=== PATIENT | male | born 1950 | race Caucasian/White ===

== ENCOUNTER 2021-03-23 12:08 | Inpatient (IN) | payer BC ==
[2021-03-23] MEDS ORDERED: Albuterol/Ipratropium 3.0-0.5 MG/3 ML Neb Soln NEB PRN (12:43)
[2021-03-23 13:15] LABS: PCO2 ARTERIAL,POC 31 mmHg (35-48)
[2021-03-23 13:30] LABS: PTT,PARTIAL THROMBOPLSTIN TIME 30.3 SEC (25.6-32.8)
[2021-03-23 13:34] LABS: ANION GAP 17.1 mmol/L (5-15); CHLORIDE,CL 96 mmol/L (98-107); SODIUM,NA 134 mmol/L (136-145)
--- NOTE | 2021-03-23 13:39 | CR ---
[id number] RAD/RAD Chest PA And Lateral EXAM: RAD Chest PA And Lateral INDICATION: SHORTNESS OF BREATH. COMPARISON: None. DISCUSSION: Cardiomediastinal silhouette is stable in size and contour. Patchy pulmonary infiltrates overlying the lungs bilaterally. No pneumothorax or pleural effusion. IMPRESSION: Patchy pulmonary infiltrates overlying the lungs bilaterally. Findings are likely infectious/inflammatory in nature as can be seen with atypical/viral pneumonia. Perfecto Kearney DO 03/23/21 [id number] Thank you for allowing us to participate in the care of your patient.
[2021-03-23] MEDS: dexAMETHasone 2 MG, dexAMETHasone 4 MG PO SCH ×2 (13:45)
[2021-03-23] MEDS ORDERED: REMDESIVIR 200 MG in Sodium Chloride 0.9% 250 ML IV ONE (14:00)
--- NOTE | 2021-03-23 14:00 | HP ---
Admission history and physical to the acute care floor at [facility]. CHIEF COMPLAINT: Shortness of breath. HISTORY OF PRESENT ILLNESS: A 70-year-old male patient presented to the clinic at [facility] complaining of shortness of breath. The patient states his symptoms started on 03/14/2021. He was diagnosed with COVID-19 on 03/18/2021. He states his symptoms have progressively gotten worse. Upon arrival to the clinic, the patient's oxygen saturations were in the low 80s. The patient has complained of dry cough, body aches, headaches, some dizziness, shortness of breath with activity. No chest pain or palpitations. No lightheadedness. The patient has had on and off fevers at home. Intermittent chills. The patient is trying to stay well hydrated with good p.o. fluid intake. The patient has not been taking anything over the counter. The patient denies any abdominal pain. No nausea, vomiting, or diarrhea. The patient quit smoking in 11/2013. No history of any COPD. PAST MEDICAL HISTORY: 1. Hyperlipidemia due to type 2 diabetes. 2. Hypertension associated with diabetes. 3. Erectile dysfunction associated with type 2 diabetes. 4. Type 2 diabetes, not on long-term insulin, without complication. 5. Obesity. 6. Tubular adenoma of the colon. 7. BPH without lower urinary tract symptoms. PAST SURGICAL HISTORY: 1. Hemiarthroplasty of the right glenohumeral joint in 1972. 2. Colonoscopy in 2014. FAMILY HISTORY: Noncontributory. SOCIAL HISTORY: The patient quit smoking in 11/2013. The patient is . The patient does not drink alcohol. No vaping. The patient is retired. ALLERGIES: 1. Barley grass. 2. Fish. 3. Ragweed. 4. Penicillin G. 5. Jardiance. 6. Statins. MEDICATIONS: 1. Glipizide 10 mg 1 tablet p.o. daily. 2. Hydrochlorothiazide 25 mg p.o. daily. 3. Metformin 1000 mg p.o. twice daily. 4. Actos 30 mg p.o. daily. 5. Quinapril 10 mg p.o. daily. 6. Ozempic 0.5 mg subcutaneous every 7 days. 7. Sitagliptin 100 mg 1 tablet p.o. daily. CODE STATUS: Full code. REVIEW OF SYSTEMS: See HPI. PHYSICAL EXAMINATION: Vital Signs: Temperature 98.0, pulse 74, blood pressure 135/68, respiratory rate 16, oxygen saturation 93% on 1.5 L. 6 feet tall. Skin: Intact. Warm and dry. Respiratory: Lungs are decreased throughout, otherwise clear. Cardiovascular: Regular rate and rhythm. No murmur. Abdomen: Soft, nontender. Bowel sounds are hypoactive x4. Extremities: No edema. Neurological: The patient is alert. The patient is oriented to person, place, and time. LABORATORY STUDIES: Results pending at the time of this dictation. ASSESSMENT: 1. Acute respiratory failure with hypoxia secondary to coronavirus disease 2019. 2. Acute coronavirus disease 2019. 3. Supplemental oxygen. 4. Type 2 diabetes without complication, without long-term use of insulin. 5. Hyperlipidemia due to type 2 diabetes. 6. Hypertension associated with type 2 diabetes. PLAN: A 70-year-old male patient who was seen at the [facility] earlier today. He was admitted to the acute care floor at [facility] for acute respiratory failure with hypoxia secondary to COVID-19. The patient will be started on remdesivir and Decadron as he is requiring oxygen. No IV fluids. Started on Lovenox. Check laboratory work today. Also, check a chest x-ray and EKG. We will recheck laboratory work tomorrow morning. The patient will be started on DuoNeb scheduled every 4 hours and every 2 hours as needed. Anticipate the patient to be admitted for the next 3 to 4 days as long as he progresses well. This patient was seen and examined by me as an [facility] provider. Total time for care and coordination, greater than 30 minutes. TB: 03/23/2021 13:04:11 MODL: 03/23/2021 13:51:51 /[id number]
[2021-03-23] MEDS ORDERED: Dexamethasone 2 MG Tab ONE (15:07)
[2021-03-23] MEDS: Albuterol/Ipratropium 3.0-0.5 MG/3 ML Neb Soln NEB SCH ×3 (15:47→20:43)
[2021-03-23] MEDS: metFORMIN 500 MG Tab PO SCH (18:31)
[2021-03-23] MEDS: Enoxaparin 40 MG/0.4 ML Syringe SUBCUT SCH ×2 (20:43→20:48)
[2021-03-24] MEDS: Albuterol/Ipratropium 3.0-0.5 MG/3 ML Neb Soln NEB SCH ×3 (00:30→07:25)
[2021-03-24 07:23] LABS: ANION GAP 21.2 mmol/L (5-15)
[2021-03-24] MEDS ORDERED: 50% Dextrose in Water 50 ML Syringe IVPUSH PRN (07:32)
[2021-03-24] MEDS ORDERED: Glucagon,Human Recombinant 1 MG Vial IM PRN (07:32)
[2021-03-24] MEDS ORDERED: Pioglitazone 15 MG Tab PO SCH (08:00)
[2021-03-24] MEDS: dexAMETHasone 2 MG, dexAMETHasone 4 MG PO SCH ×2 (08:59)
[2021-03-24] MEDS: Lisinopril 5 MG Tab PO SCH (08:59)
[2021-03-24] MEDS: metFORMIN 500 MG Tab PO SCH (08:59)
[2021-03-24] MEDS: Hydrochlorothiazide 25 MG Tab PO SCH (08:59)
[2021-03-24] MEDS: Insulin Regular, Human 100 Units/ML 3 ML Vial SUBCUT ONE ×2 (09:15→11:42)
[2021-03-24] MEDS: Insulin Regular, Human 100 Units/ML 3 ML Vial SUBCUT SCH ×2 (09:30→14:28)
--- NOTE | 2021-03-24 09:54 | PN ---
Progress Note for CORY BENAVIDEZ Date: 03/24/2021 Room #: [id number] CHIEF COMPLAINT: Shortness of breath. SUBJECTIVE: Hospital day #2 on a 70-year-old male patient who was admitted from the [facility] yesterday for acute respiratory failure with hypoxia secondary to COVID-19. The patient states he is feeling better today. He does not have a cough. He feels less short of breath. He is still on oxygen at 3 L. The patient states his strength is getting better. He is able to walk around the room without assistance. He has not had any chest pain or palpitations. He does have intermittent shortness of breath with activity. No fevers or chills. No skin concerns. No abdominal complaints. The patient denies any nausea, vomiting, or diarrhea. REVIEW OF SYSTEMS: See HPI. PHYSICAL EXAMINATION: Vital Signs: Temperature 97.2, pulse 83, blood pressure 153/80, respiratory rate 20, oxygen saturation 90% on 3 L. Skin: Intact, warm and dry. Respiratory: Lungs are decreased, but clear throughout. Cardiovascular: Regular rate and rhythm, no murmur. Abdomen: Soft, nontender. Bowel sounds are hypoactive x4. Extremities: No edema. Neurological: The patient is alert. Patient is oriented to person, place, and time. LABORATORY STUDIES: 1. CBC: White blood cell count 1.5, hemoglobin 10.4, hematocrit 33.4, platelets 159,000. 2. CMP: Sodium 138, potassium 4.2, chloride 100, CO2 of 21, anion gap 21.2, BUN 22, creatinine 1.5, GFR 47, glucose 440, calcium 8.5, AST 25, ALT 22, alkaline phosphatase 74, total protein 6.3. ASSESSMENT: 1. Acute respiratory failure with hypoxia secondary to COVID-19. 2. Acute COVID-19. 3. Supplemental oxygen. 4. Type 2 diabetes without complication, without long-term use of insulin. 5. Hyperlipidemia due to type 2 diabetes. 6. Hypertension associated with type 2 diabetes. PLAN: Hospital day #2 on a 70-year-old male patient who was admitted from the [facility] yesterday for the above diagnoses. The patient will continue on acute cares. Continue with oxygen to keep his saturations greater than 90%. We will discuss Lovenox dosing with pharmacy as the patient has a history of GI bleed from a couple of months ago. Continue on remdesivir and Decadron. We will start the patient on high-dose sliding scale insulin for sugar correction. Recheck laboratory work tomorrow. We discussed getting out of bed and walking. I anticipate the patient to be admitted for the next 2 to 3 days. This patient was seen and examined by me as an [facility] provider. Total time for care and coordination, greater than 30 minutes. TB: 03/24/2021 08:04:32 MODL: 03/24/2021 09:43:45 /[id number]
[2021-03-24] MEDS: Azithromycin 250 MG Tab PO SCH (10:05)
[2021-03-24] MEDS: cefTRIAXone 2 GM Vial IVPUSH SCH (10:06)
[2021-03-24] MEDS ORDERED: REMDESIVIR 100 MG in Sodium Chloride 0.9% 100 ML IV SCH (14:00)
[2021-03-24] MEDS: REMDESIVIR 100 MG in Sodium Chloride 0.9% 100 ML IV SCH (14:49)
--- NOTE | 2021-03-24 17:11 | PCM.EKG ---
#1 Interpretation EKG Date: 03/23/21 Rhythm: NSR Rate (Beats/Min): 91 [place]: Normal P-Wave: Present QRS: RBBB ST-T: Normal QT: Normal IN/PQ Interval: 0.15 Comparison: NA - No Prior EKG EKG Interpretation Comments: NSR with RBBB
--- NOTE | 2021-03-24 17:15 | PCM.SN.2 ---
- Free Text/Narrative Note: Blood sugars discussed with pharmacist and RN. Will start insulin drip and hold PO DM meds. Insulin drip per protocol. Check BS every hour. Left leg feels numb. Likely due to decrease in ambulation and patient staying in bed too long. Recommend ambulating in room. Will see if patient can come out of isolation tomorrow. Patient and RN aware of plan.
[2021-03-24] MEDS: Enoxaparin 40 MG/0.4 ML Syringe SUBCUT SCH (20:53)
[2021-03-25 07:17] LABS: CHLORIDE,CL 101 mmol/L (98-107); SODIUM,NA 139 mmol/L (136-145)
[2021-03-25 07:18] LABS: ANION GAP 13.6 mmol/L (5-15)
[2021-03-25] MEDS: Azithromycin 250 MG Tab PO SCH (08:56)
[2021-03-25] MEDS: Hydrochlorothiazide 25 MG Tab PO SCH (08:57)
[2021-03-25] MEDS: Lisinopril 5 MG Tab PO SCH (08:57)
[2021-03-25] MEDS: dexAMETHasone 2 MG, dexAMETHasone 4 MG PO SCH ×2 (08:57)
[2021-03-25] MEDS: cefTRIAXone 2 GM Vial IVPUSH SCH (08:58)
[2021-03-25] MEDS: Insulin Lispro 100 Units/ML 3 ML Vial SUBCUT SCH ×2 (11:54→17:57)
--- NOTE | 2021-03-25 13:34 | PN ---
Progress Note for CORY BENAVIDEZ Date: 03/25/2021 Room #: VM.210 CHIEF COMPLAINT: Shortness of breath. SUBJECTIVE: Hospital day #3 on a 70-year-old male patient who was admitted to the acute care floor at [facility] for acute respiratory failure with hypoxia secondary to COVID-19. The patient states he is feeling better today. He does have a productive cough. He states he does not feel short of breath. The patient continues on oxygen at 3 L. The patient states he has been ambulating in the room and feels good. No issues with urination or bowel movements. The patient has not had any headaches, dizziness, or lightheadedness. He states he has some lower abdominal pain with his cough. No nausea or vomiting. No diarrhea. The patient does not think he has had any fevers or chills. No chest pain or palpitations. The patient states that he is feeling stronger. REVIEW OF SYSTEMS: See HPI. PHYSICAL EXAMINATION: Vital Signs: Temperature 98.2, pulse 75, blood pressure 113/63, respiratory rate 22, oxygen saturation 94% on 3 L. Skin: Intact, warm and dry. Respiratory: Lungs are decreased, but clear throughout. Cardiovascular: Regular rate and rhythm, no murmur. Abdomen: Soft, nontender. Bowel sounds are hypoactive x4. Extremities: No edema. Neurological: The patient is alert. The patient is oriented to person, place, and time. LABORATORY STUDIES: 1. CBC: White blood cell count 4.8, hemoglobin 10.3, hematocrit 32.2, platelets are 202,000. 2. CMP: Sodium 139, potassium 4.6, chloride 101, CO2 of 29, anion gap 13.6, BUN 27, creatinine 1.1, GFR greater than 60, glucose 310, calcium 8.7, AST 25, ALT 22, alkaline phosphatase 73, total protein 6.3. ASSESSMENT: 1. Acute respiratory failure with hypoxia secondary to COVID-19. 2. Acute COVID-19. 3. Supplemental oxygen. 4. Type 2 diabetes without complication without long-term use of insulin. 5. Hyperglycemia due to type 2 diabetes. 6. Hypertension associated with type 2 diabetes. PLAN: Hospital day #3 on a 70-year-old male patient who was admitted to the acute care floor at [facility] for the above diagnoses. We will continue on acute cares for now, on oxygen. I did discuss with nursing staff to wean the oxygen for saturations greater than 90%. The patient needs to get up and move around out of bed. Continue on oral antibiotics. Keep a close eye on blood sugars. We will leave the insulin drip off for now. May consider restarting oral hypoglycemics. Continue on the remdesivir and Decadron. Recheck laboratory work tomorrow. Anticipate discharge over the next couple of days. This patient was seen and examined by me as an [facility] provider. Total time preparing coordination greater than 30 minutes. TB: 03/25/2021 09:02:55 MODL: 03/25/2021 12:45:51 /[id number]
[2021-03-25] MEDS: REMDESIVIR 100 MG in Sodium Chloride 0.9% 100 ML IV SCH (15:06)
[2021-03-25] MEDS: metFORMIN 500 MG Tab PO SCH (17:56)
[2021-03-25] MEDS: Enoxaparin 40 MG/0.4 ML Syringe SUBCUT SCH (20:02)
[2021-03-26] MEDS: Albuterol HFA 18 Gm Inhaler INH PRN ×2 (03:01→20:51)
[2021-03-26] MEDS ORDERED: 50% Dextrose in Water 50 ML Syringe IVPUSH PRN (03:47)
[2021-03-26] MEDS ORDERED: Glucagon,Human Recombinant 1 MG Vial IM PRN (03:47)
[2021-03-26] MEDS ORDERED: Insulin Regular, Human 100 Units/ML 3 ML Vial SUBCUT ONE (03:48)
[2021-03-26 07:32] LABS: CHLORIDE,CL 103 mmol/L (98-107); SODIUM,NA 140 mmol/L (136-145)
[2021-03-26 07:37] LABS: ANION GAP 14.2 mmol/L (5-15)
[2021-03-26] MEDS: Azithromycin 250 MG Tab PO SCH (08:11)
[2021-03-26] MEDS: cefTRIAXone 2 GM Vial IVPUSH SCH (08:11)
[2021-03-26] MEDS: metFORMIN 500 MG Tab PO SCH ×2 (08:12→17:36)
[2021-03-26] MEDS: Hydrochlorothiazide 25 MG Tab PO SCH (08:12)
[2021-03-26] MEDS: Lisinopril 5 MG Tab PO SCH (08:12)
[2021-03-26] MEDS: dexAMETHasone 2 MG, dexAMETHasone 4 MG PO SCH ×2 (08:13)
[2021-03-26] MEDS: Insulin Lispro 100 Units/ML 3 ML Vial SUBCUT SCH ×4 (08:14→20:57)
--- NOTE | 2021-03-26 10:03 | CR ---
[id number] RAD/RAD Chest PA And Lateral EXAM: RAD Chest PA And Lateral INDICATION: SHORT OF BREATH,HYPOXIA. COMPARISON: March 23, 2021. DISCUSSION/IMPRESSION: Scattered patchy areas of parenchymal opacification throughout both lungs most prominent in the mid and lower lungs. Findings have slightly increased since the prior examination March 23, 2021. Correlate for signs of infection as this would be consistent with changes of COVID pneumonia. No other significant change compared to the prior examination. Ignacio Terry MD 03/26/21 1002 Thank you for allowing us to participate in the care of your patient.
[2021-03-26] MEDS: REMDESIVIR 100 MG in Sodium Chloride 0.9% 100 ML IV SCH (15:00)
[2021-03-26] MEDS: Enoxaparin 40 MG/0.4 ML Syringe SUBCUT SCH (20:28)
--- NOTE | 2021-03-26 22:31 | PN ---
Progress Note for CORY BENAVIDEZ Date: 03/26/2021 Room #: [facility] CHIEF COMPLAINT: Shortness of breath. SUBJECTIVE: Hospital day #4 on a 70-year-old male patient who was admitted to the acute care floor at [facility] for acute respiratory failure with hypoxia secondary to COVID-19. The patient was doing fairly well yesterday afternoon, however, throughout the night he started feeling fatigued and required higher levels of oxygen. The patient's saturations had dropped into the low 80s. The patient has developed somewhat of a productive cough. The patient is currently on antibiotics and remdesivir. He is also on the Decadron. The patient denies any headaches, dizziness, or lightheadedness. He feels somewhat short of breath. Productive cough. No chest pain or palpitations. No leg swelling. No abdominal complaints. No skin concerns. The patient does not believe he has had any fevers or chills. REVIEW OF SYSTEMS: See HPI. PHYSICAL EXAMINATION: Vital Signs: Temperature 97.7, pulse 91, blood pressure 129/73, respiratory rate 20, oxygen saturation 90% on 3 L, weight 250 pounds. Skin: Intact, warm and dry. Respiratory: Lungs are decreased, but clear throughout. Cardiovascular: Regular rate and rhythm, no murmur. Abdomen: Soft, nontender. Bowel sounds are hypoactive x4. Extremities: No edema. Neurological: The patient is alert. The patient is oriented to person, place, and time. LABORATORY STUDIES: 1. CBC: White blood cell count 4.7, hemoglobin 10.4, hematocrit 33.0, platelets 232,000. 2. CMP: 140, potassium 4.2, chloride 103, CO2 of 27, anion gap 14.2, BUN 26, creatinine 1.0, GFR greater than 60, glucose 244, calcium 8.7, AST 20, ALT 21, alkaline phosphatase 72, total protein 6.1. ASSESSMENT: 1. Acute respiratory failure with hypoxia secondary to COVID-19. 2. Acute COVID-19. 3. Supplemental oxygen. 4. Type 2 diabetes without complication without long-term use of insulin. 5. Mixed hyperlipidemia due to type 2 diabetes. 6. Hypertension associated with type 2 diabetes. PLAN: Hospital day #4 on a 70-year-old male patient who was admitted to the acute care floor at [facility] for the above. I did discuss with the patient possible home patient monitoring through [facility], however, his oxygen requirements have increased, and he has developed a productive cough; therefore, I would like to keep him 1 more day to make sure he is safe to go home. We will continue on antibiotics. Continue on remdesivir and Decadron. The patient is out of isolation; therefore, I have asked him to get up and walk as much as possible. Recheck laboratory work tomorrow. If the patient improves, may consider discharge home tomorrow. This patient was seen and examined by me as an [facility] provider. Total time of care and coordination, greater than 30 minutes. TB: 03/26/2021 11:47:11 MODL: 03/26/2021 22:24:16 /[id number]
[2021-03-27] MEDS ORDERED: Dexamethasone 2 MG Tab ONE (07:01)
[2021-03-27] MEDS: cefTRIAXone 2 GM Vial IVPUSH SCH (07:42)
[2021-03-27] MEDS: Azithromycin 250 MG Tab PO SCH (07:46)
[2021-03-27] MEDS: Hydrochlorothiazide 25 MG Tab PO SCH (07:46)
[2021-03-27] MEDS: Lisinopril 5 MG Tab PO SCH (07:46)
[2021-03-27] MEDS: metFORMIN 500 MG Tab PO SCH ×2 (07:47→17:33)
[2021-03-27] MEDS: dexAMETHasone 2 MG, dexAMETHasone 4 MG PO SCH ×2 (07:47)
[2021-03-27] MEDS: Insulin Lispro 100 Units/ML 3 ML Vial SUBCUT SCH ×3 (07:47→17:32)
[2021-03-27] MEDS: Albuterol HFA 18 Gm Inhaler INH PRN (08:03)
[2021-03-27 08:32] LABS: CHLORIDE,CL 102 mmol/L (98-107); SODIUM,NA 140 mmol/L (136-145)
[2021-03-27 08:33] LABS: ANION GAP 16.1 mmol/L (5-15)
--- NOTE | 2021-03-27 10:25 | PN ---
Progress Note for CORY BENAVIDEZ Date: 03/27/2021 Room #: [facility]210 CHIEF COMPLAINT: Shortness of breath. SUBJECTIVE: Hospital day #5 on a 70-year-old male patient who was admitted to the acute care floor at [facility] for acute respiratory failure with hypoxia secondary to COVID-19. The patient still requires oxygen to keep the saturations greater than 90%. He continues on remdesivir and Decadron. He also continues on antibiotics for secondary bacterial pneumonia. The patient states he feels very anxious. He is having trouble making decisions on whether or not he wants to go on home patient monitoring or stay in the hospital. The patient has not had any headaches, dizziness, or lightheadedness. More short of breath with activity, which could be secondary to his anxiety. Intermittent cough producing a white phlegm. No skin problems. No chest pain or palpitations. No leg swelling. No fevers or chills. No abdominal complaints. REVIEW OF SYSTEMS: See HPI. PHYSICAL EXAMINATION: Vital Signs: Temperature 97.7, blood pressure 112/67, respiratory rate 20, oxygen saturation 90% on 3 L. Skin: Intact, warm and dry. Respiratory: Lungs are decreased throughout, otherwise clear. Cardiovascular: Regular rate and rhythm, no murmur. Abdomen: Soft, nontender. Hypoactive bowel sounds. Extremities: No edema. Neurological: The patient is alert. The patient is oriented to person, place, and time. LABORATORY STUDIES: 1. CBC: White blood cell count 6.7, hemoglobin 11.1, hematocrit 35.0, platelets 290,000. 2. CMP: Sodium 140, potassium 4.1, chloride 102, CO2 of 26, anion gap 16.1, BUN 26, creatinine 1.0, GFR greater than 60, glucose 178, AST 18, ALT 22, alkaline phosphatase 73. ASSESSMENT: 1. Acute respiratory failure secondary to hypoxia due to COVID-19. 2. Acute COVID-19. 3. Supplemental oxygen to keep saturations greater than 90%. 4. Type 2 diabetes without complication without long-term use of insulin. 5. Hyperlipidemia due to type 2 diabetes. 6. Essential hypertension associated with type 2 diabetes. PLAN: Hospital day #5 on a 70-year-old male patient who was admitted to the acute care floor at [facility] for the above diagnoses. We had a long discussion regarding home patient monitoring on oxygen through the [facility] COVID team versus staying in the hospital. The patient had a lot of difficulty trying to make up his decision. He would like to leave the hospital; however, he is concerned about being home alone. The patient decided to stay. Recheck laboratory work tomorrow. Continue with remdesivir and Decadron. Continue with antibiotics. Encourage ambulation as much as possible. We did talk about incentive spirometry and cough and deep breathing. We will recheck laboratory work tomorrow. This patient was seen and examined by me as an [facility] provider. Total time for care and coordination greater than 30 minutes. TB: 03/27/2021 09:47:01 MODL: 03/27/2021 10:20:26 /[id number]
[2021-03-27] MEDS: REMDESIVIR 100 MG in Sodium Chloride 0.9% 100 ML IV SCH (14:02)
[2021-03-27] MEDS: Enoxaparin 40 MG/0.4 ML Syringe SUBCUT SCH (21:56)
[2021-03-28] MEDS ORDERED: Docusate Sodium 100 MG Cap PO PRN (07:37)
[2021-03-28] MEDS: cefTRIAXone 2 GM Vial IVPUSH SCH (07:51)
[2021-03-28] MEDS: Polyethylene Glycol 3350 Powder 17 GM Packet PO SCH (07:52)
[2021-03-28] MEDS: metFORMIN 500 MG Tab PO SCH ×2 (07:52→17:50)
[2021-03-28] MEDS: Hydrochlorothiazide 25 MG Tab PO SCH (07:53)
[2021-03-28] MEDS: dexAMETHasone 2 MG, dexAMETHasone 4 MG PO SCH ×2 (07:53)
[2021-03-28] MEDS: Insulin Lispro 100 Units/ML 3 ML Vial SUBCUT SCH ×3 (07:53→17:52)
[2021-03-28] MEDS: Azithromycin 250 MG Tab PO SCH (07:54)
[2021-03-28] MEDS: Lisinopril 5 MG Tab PO SCH (07:54)
[2021-03-28 09:04] LABS: CHLORIDE,CL 102 mmol/L (98-107); SODIUM,NA 140 mmol/L (136-145)
[2021-03-28 09:07] LABS: ANION GAP 14.1 mmol/L (5-15)
--- NOTE | 2021-03-28 10:37 | PN ---
Progress Note for CORY BENAVIDEZ Date: 03/28/2021 Room #: [id number] CHIEF COMPLAINT: Shortness of breath. SUBJECTIVE: Hospital day #6 on a 70-year-old male patient, who was admitted to the acute care floor at [facility] for acute respiratory failure with hypoxia secondary to COVID-19. The patient continues on oxygen. The patient's oxygen has ranged anywhere from 2 to 3 L to maintain sats greater than 90%. The patient does have desaturations with activity. The remdesivir was completed yesterday. Decadron will be discontinued on 04/01/2021. The patient has tolerated them well. The patient is also finishing up antibiotics tomorrow. The patient has not had any headaches, dizziness, or lightheadedness. The patient states he is short of breath with activity. His cough has greatly improved. No abdominal complaints. No chest pain or palpitations. No leg swelling. No skin complaints. REVIEW OF SYSTEMS: See HPI. PHYSICAL EXAMINATION: Vital Signs: Temperature 96.7, pulse 73, blood pressure 135/74, respiratory rate 16, oxygen saturation 91% on 3 L. Skin: Intact, warm, and dry. Respiratory: Lungs are decreased throughout, otherwise clear. Cardiovascular: Regular rate and rhythm. No murmur. Abdomen: Soft, nontender. Bowel sounds are hypoactive x4. Extremities: No edema. Neurological: The patient is alert. The patient is oriented to person, place, and time. The patient appears to be agitated. The patient states his current health status and being away from home is making him anxious and agitated. LABORATORY STUDIES: 1. CBC: White blood cell count 7.3, hemoglobin 11.0, hematocrit 35.1, platelets 307,000. 2. CMP: Sodium 140, potassium 4.1, chloride 102, CO2 of 28, anion gap 14.1, BUN 24, creatinine 1.0, GFR greater than 60, glucose 251, calcium 8.6, AST 12, ALT 19, alkaline phosphatase 74, total protein 6.2. 3. Lactic acid 1.7. 4. Ferritin 66. 5. C-reactive protein 0.7. 6. LDH 219. ASSESSMENT: 1. Acute respiratory failure secondary to hypoxia due to coronavirus disease 2019. 2. Acute coronavirus disease 2019. 3. Supplemental oxygen to keep saturations greater than 90%. 4. Type 2 diabetes without complication without long-term use of insulin. 5. Hyperlipidemia due to type 2 diabetes. 6. Essential hypertension associated with type 2 diabetes. PLAN: Hospital day #6 on a 70-year-old male patient, who was admitted to the acute care floor at [facility] for acute respiratory failure with hypoxia secondary to COVID-19. We will discontinue Lovenox as the inflammatory markers are normal. We will finish up with antibiotics. The patient has completed his full course of remdesivir. He will continue on the Decadron until 04/01/2021. The patient is doing well, getting up and ambulating in the hallway. Isolation was discontinued a couple of days ago. The patient does complain of constipation. Therefore, we will start the patient on MiraLAX and Colace. Recheck laboratory work tomorrow. The patient was a candidate for remote patient monitoring; however, unable to secure equipment for oxygen at home. Therefore, the patient will remain in the hospital probably until Tuesday when oxygen can be delivered to his home. Continue with incentive spirometry and cough and deep breathing. Try to wean the oxygen aggressively. This patient was seen and examined by me as an [facility] provider. Total time for care and coordination, greater than 30 minutes. TB: 03/28/2021 09:38:33 MODL: 03/28/2021 10:32:59 /[id number]
[2021-03-28] MEDS: Albuterol HFA 18 Gm Inhaler INH PRN (17:55)
[2021-03-29] MEDS: cefTRIAXone 2 GM Vial IVPUSH SCH (08:14)
[2021-03-29] MEDS: Lisinopril 5 MG Tab PO SCH (08:15)
[2021-03-29] MEDS: dexAMETHasone 2 MG, dexAMETHasone 4 MG PO SCH ×2 (08:15)
[2021-03-29] MEDS: metFORMIN 500 MG Tab PO SCH ×2 (08:15→17:44)
[2021-03-29] MEDS: Insulin Lispro 100 Units/ML 3 ML Vial SUBCUT SCH ×3 (08:16→17:45)
[2021-03-29] MEDS: Hydrochlorothiazide 25 MG Tab PO SCH (08:16)
[2021-03-29] MEDS: Polyethylene Glycol 3350 Powder 17 GM Packet PO SCH (08:17)
[2021-03-29] MEDS ORDERED: SEMAGLUTIDE 1 MG/0.75 ML SQ SCH (12:00)
--- NOTE | 2021-03-29 14:49 | PN ---
Progress Note for CORY BENAVIDEZ Date: 03/29/2021 Room #: VM.210 CHIEF COMPLAINT: Shortness of breath. SUBJECTIVE: Hospital day #7 on a 70-year-old male patient who was admitted to the acute care floor at [facility] for acute respiratory failure with hypoxia secondary to COVID-19. The patient is weaning off his oxygen. He currently is off the oxygen, however, his oxygen saturation is 87%. The patient states he does not feel short of breath when sitting. He gets some shortness of breath with activity. The patient has been walking up and down the hallways. Minimal distress when walking. The patient has completed remdesivir. He will complete his Decadron on 04/01/2021. The patient has completed all of his antibiotics. The patient denies any headache, dizziness, or lightheadedness. Intermittent dry cough. No chest pain or palpitations. No leg swelling. No fevers or chills. No skin complaints. He did have a bowel movement last evening. No other abdominal concerns. The patient states today that he is feeling very anxious. The anticipation of discharge is causing him to have some anxiety as he is worried about his health status. REVIEW OF SYSTEMS: See HPI. PHYSICAL EXAMINATION: Vital Signs: Weight 243.9 pounds, temp 97.1, pulse 82, blood pressure 115/66, respiratory rate 18, oxygen saturation 87% on room air. Skin: Intact, warm, and dry. Respiratory: Lungs are decreased, but clear throughout. Cardiovascular: Regular rate and rhythm, no murmur. Abdomen: Soft, nontender. Bowel sounds are hypoactive x4. Extremities: No edema. Neurological: The patient is alert. The patient is oriented to person, place, and time. Psychiatric: The patient appears anxious. Speech is rapid. LABORATORY STUDIES: None. ASSESSMENT: 1. Acute respiratory failure secondary to hypoxia due to coronavirus disease 2019. 2. Acute coronavirus disease 2019. 3. Supplemental oxygen to keep saturations greater than 90%. 4. Type 2 diabetes without complication without long-term use of insulin. 5. Hyperlipidemia due to type 2 diabetes. 6. Essential hypertension associated with type 2 diabetes. 7. Generalized anxiety disorder. PLAN: Hospital day #7 on a 70-year-old male patient who was admitted to the acute care floor at [facility] for the above diagnoses. The patient will be started on 1 mg Ativan every 8 hours as needed for anxiety. Continue with oxygen to keep saturations 90% or greater. Continue with incentive spirometer and cough and deep breathing. Encourage the patient to continue ambulating as he is able and as much as possible. Finish up Decadron on 04/01/2021. Antivirals and antibiotics have completed their course. Continue on medications for constipation. If the patient can remain off oxygen and keep his saturations greater than 90%, he may be discharged home tomorrow. This patient was seen and examined by me as an [facility] provider. Total time for care and coordination greater than 30 minutes. TB: 03/29/2021 14:24:21 MODL: 03/29/2021 14:41:36 /[id number]
[2021-03-29] MEDS: LORazepam 1 MG Tab PO PRN (20:22)
[2021-03-30 07:28] LABS: CHLORIDE,CL 102 mmol/L (98-107); SODIUM,NA 137 mmol/L (136-145)
[2021-03-30] MEDS: Lisinopril 5 MG Tab PO SCH (07:49)
[2021-03-30] MEDS: Hydrochlorothiazide 25 MG Tab PO SCH (07:50)
[2021-03-30] MEDS: dexAMETHasone 2 MG, dexAMETHasone 4 MG PO SCH ×2 (07:50)
[2021-03-30] MEDS: metFORMIN 500 MG Tab PO SCH ×2 (07:50→18:15)
[2021-03-30] MEDS: Insulin Lispro 100 Units/ML 3 ML Vial SUBCUT SCH ×3 (07:52→18:16)
[2021-03-30] MEDS: Polyethylene Glycol 3350 Powder 17 GM Packet PO SCH (07:54)
[2021-03-30] MEDS ORDERED: 50% Dextrose in Water 50 ML Syringe IVPUSH PRN (12:06)
[2021-03-30] MEDS ORDERED: Glucagon,Human Recombinant 1 MG Vial IM PRN (12:06)
--- NOTE | 2021-03-30 13:05 | PN ---
Progress Note for CORY BENAVIDEZ Date: 03/30/2021 Room #: VM.210 SUBJECTIVE: This is hospital day #8 on a 70-year-old admitted with COVID-19. The patient has been off oxygen overnight, his lowest saturations were 86%. His highest oxygen during his stay was 4 L. He is feeling well. He is having some shortness of breath, but he states he actually feels better when he is up and moving around. He is still coughing some but improving. He has had no fever, no chills. He is tolerating a diet. He does have occasional wheezing, but had this previous as he does have underlying COPD per his report. He quit smoking in 2013 and does take albuterol as needed at home. The patient does have type 2 diabetes. He has had some hyperglycemia on Decadron. He has never been on insulin. He is getting a sliding scale here. The patient developed his symptoms on the , but was unable to get a monoclonal antibody infusion. He has a regular doctor in [place]. 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 OBJECTIVE: Vital Signs: His temperature today is 97.3, pulse 86, blood pressure 108/60, respiratory rate 19, O2 92% on room air. Weight 109.8 kg. General: He is in no acute distress. Heart: Regular rate and rhythm. S1, S2 without murmur. Lungs: Sounds are clear to auscultation bilaterally without crackles or wheezes. Extremities: Warm, dry. No edema. Mental Status: He is alert, he is orientated x3. Mood, he is not anxious or depressed. He did get some Ativan overnight, he says that is probably why his oxygen level decreased. LABORATORY DATA: Laboratory work did show white count 8.6, hemoglobin 10.9, platelets 343. Sodium 137, potassium 4, chloride 102, bicarb 28, BUN 21, creatinine 0.9, glucose 232, albumin 2.4. ASSESSMENT AND PLAN: 1. Acute hypoxic respiratory failure secondary to COVID-19 infection. He is off oxygen during the day, but still requiring at night. 2. COVID-19 infection, day #17 by symptoms. He is out of isolation. He has 2 more days left of dexamethasone. 3. Type 2 diabetes with hyperglycemia due to steroids without long-term insulin use. We will start Lantus 10 units daily in addition to his meal sliding scale and home medications. Although we have not been able to give Ozempic here, he plans to restart that on discharge. 4. Hyperlipidemia. 5. Essential hypertension, controlled. 6. Anxiety. He has p.r.n. Ativan available. 7. History of smoking and underlying chronic obstructive pulmonary disease with exacerbation due to COVID. He has not required any further nebulizers. PLAN: The patient will continue acute cares. I will start him on Lovenox today. I will start him on Lantus. We will continue his q.i.d. Accu-Cheks. We will continue dexamethasone to complete that course. We will continue him off oxygen and wean oxygen at night. He is a full code. Yahir Aguilera to assume care on the . MKA: 03/30/2021 12:19:28 MODL: 03/30/2021 13:02:05 /[id number]
[2021-03-30] MEDS: Insulin Glarg,Human.Rec.Analog 100 Unit/ML SUBCUT SCH (13:27)
[2021-03-30] MEDS: Aspirin 325 MG Tab.EC PO SCH (13:29)
[2021-03-30] MEDS: Albuterol HFA 18 Gm Inhaler INH PRN (18:19)
[2021-03-30] MEDS ORDERED: Enoxaparin 40 MG/0.4 ML Syringe SUBCUT SCH (20:00)
[2021-03-30] MEDS: LORazepam 1 MG Tab PO PRN (21:51)
[2021-03-31 07:33] LABS: CHLORIDE,CL 101 mmol/L (98-107); SODIUM,NA 138 mmol/L (136-145)
[2021-03-31 07:37] LABS: ANION GAP 13.2 mmol/L (5-15)
[2021-03-31] MEDS: Insulin Lispro 100 Units/ML 3 ML Vial SUBCUT SCH (07:54)
[2021-03-31] MEDS: metFORMIN 500 MG Tab PO SCH (07:55)
[2021-03-31] MEDS: Aspirin 325 MG Tab.EC PO SCH (07:55)
[2021-03-31] MEDS: Hydrochlorothiazide 25 MG Tab PO SCH (07:55)
[2021-03-31] MEDS: dexAMETHasone 2 MG, dexAMETHasone 4 MG PO SCH ×2 (07:56)
[2021-03-31] MEDS: Lisinopril 5 MG Tab PO SCH (07:56)
--- NOTE | 2021-03-31 08:04 | PCM.DCSUM1 ---
Discharge Summary - Hospital Course Free Text/Narrative:: 70 year old male admitted with Covid. On day #9 of hospitalization. Has been off oxygen for 24 hours. Feels well enough to go home. Diagnosis: Stroke: No - Discharge Data Discharge Date: 03/31/21 Discharge Disposition: Home, Self-Care 01 Condition: Good - Referral to Home Health Primary Care Physician: PCP None - Discharge Diagnosis/Problem(s) (1) COVID-19 SNOMED Code(s): 626174903 ICD Code: U07.1 - COVID-19 Status: Acute Current Visit: Yes (2) Diabetes mellitus type 2 in obese SNOMED Code(s): 64488210 ICD Code: E11.69 - TYPE 2 DIABETES MELLITUS WITH OTHER SPECIFIED COMPLICATION; E66.9 - OBESITY, UNSPECIFIED Status: Acute Current Visit: Yes (3) COPD (chronic obstructive pulmonary disease) SNOMED Code(s): 04038833 ICD Code: J44.9 - CHRONIC OBSTRUCTIVE PULMONARY DISEASE, UNSPECIFIED Status: Acute Current Visit: Yes (4) Anxiety SNOMED Code(s): 00539667 ICD Code: F41.9 - ANXIETY DISORDER, UNSPECIFIED Status: Acute Current Visit: Yes (5) Hypertension associated with diabetes SNOMED Code(s): 71105620 ICD Code: E11.59 - TYPE 2 DIABETES MELLITUS WITH OTH CIRCULATORY COMPLICATIONS; I15.2 - HYPERTENSION SECONDARY TO ENDOCRINE DISORDERS Status: Acute Current Visit: Yes - Patient Summary/Data Consults: Consultations 03/23/21 12:35 Consult to Case Management/[employer]ician [CONS] Routine 03/23/21 12:42 Consult to Respiratory Therapy [Respiratory Care Assess and Treatment] [CONS] Routine Hospital Course: 70 year old male on day #9 of hospitalization for Covid 19 infection. Has been successfully weaned to room air. Was started on lorazepam for treatment of anxiety. Feels this is working well for him. - Patient Instructions Diet: Diabetic Diet Driving: May Drive Today Showering/Bathing: May Shower - Discharge Plan *PRESCRIPTION DRUG MONITORING PROGRAM REVIEWED*: Not Applicable *COPY OF PRESCRIPTION DRUG MONITORING REPORT IN PATIENT YULISA: Not Applicable Prescriptions/Med Rec: LORazepam [Ativan] 1 mg PO BID PRN #28 tablet PRN Reason: Anxiety dexAMETHasone [Dexamethasone] 6 mg PO DAILY #1 tablet dexAMETHasone [Dexamethasone] 6 mg PO DAILY #1 tablet Insulin Glarg,Human.Rec.Analog [Lantus] 10 unit SUBCUT DAILY 14 Days ml Insulin Aspart [NovoLOG] 4 unit SUBCUT WITHMEALSANDBED 14 Days pen Home Medications: Home Meds Albuterol Sulfate [Albuterol Sulfate Hfa] 1 - 2 inh PO Q4H PRN 03/23/21 [History] Aspirin [Sahly Advanced] 1,000 mg PO BID PRN 03/23/21 [History] Pioglitazone HCl [Actos] 30 mg PO DAILY 03/23/21 [History] Quinapril [Accupril] 10 mg PO DAILY 03/23/21 [History] Sildenafil Citrate [Viagra] 100 mg PO DAILY PRN 03/23/21 [History] SitaGLIPtin [Januvia] 100 mg PO DAILY 03/23/21 [History] glipiZIDE [Glucotrol] 10 mg PO DAILY 03/23/21 [History] hydroCHLOROthiazide [Hydrochlorothiazide] 25 mg PO DAILY 03/23/21 [History] metFORMIN HCl [Metformin HCl] 1,000 mg PO BIDMEALS 03/23/21 [History] Albuterol [Ventolin HFA] 1 puff INH Q4H PRN inhaler 03/31/21 [Rx] Aspirin [Ecotrin EC] 325 mg PO DAILY tab.ec 03/31/21 [Rx] Docusate Sodium [Colace] 100 mg PO Q12H PRN cap 03/31/21 [Rx] Insulin Aspart [NovoLOG] 4 unit SUBCUT WITHMEALSANDBED 14 Days pen 03/31/21 [Rx] Insulin Glarg,Human.Rec.Analog [Lantus] 10 unit SUBCUT DAILY 14 Days ml 03/31/21 [Rx] LORazepam [Ativan] 1 mg PO BID PRN #28 tablet 03/31/21 [Rx] Semaglutide [Ozempic] 0.5 mg SQ Q7D 03/31/21 [Rx] dexAMETHasone [Dexamethasone] 6 mg PO DAILY #1 tablet 03/31/21 [Rx] dexAMETHasone [Dexamethasone] 6 mg PO DAILY #1 tablet 03/31/21 [Rx] polyethylene glycoL 3350 [MiraLAX] 17 gm PO DAILY packet 03/31/21 [Rx] Oxygen Therapy Mode: Room Air Patient Handouts: Insulin Treatment for Diabetes Mellitus - Discharge Summary/Plan Comment DC Time >30 min.: Yes Total # of Minutes for Discharge Time: 40 minutes Discharge Summary/Plan Comment: Will discharge home to care of self Finish Decadron Continue Lantus Discontinue Lovenox - General Info Date of Service: 03/31/21 Admission Dx/Problem (Free Text: Covid 19 infection Subjective Update: Patient states he is filling considerably better. Feels well enough to go home. Denies concerns about being discharged on insulin. Functional Status: Reports: Pain Controlled - Review of Systems General: Reports: No Symptoms HEENT: Reports: No Symptoms Pulmonary: Reports: Cough. Denies: Shortness of Breath Cardiovascular: Denies: Chest Pain Gastrointestinal: Denies: Abdominal Pain, Diarrhea, Vomiting Genitourinary: Reports: No Symptoms Musculoskeletal: Reports: No Symptoms Psychiatric: Reports: Anxiety - Patient Data Vitals - Most Recent: Last Vital Signs Temp 36.2 C 03/31/21 06:00 Pulse 88 03/31/21 06:00 Resp 19 03/31/21 06:00 BP 108/52 L 03/31/21 06:00 Pulse Ox 90 L 03/31/21 06:00 Weight - Most Recent: 109.86 kg Lab Results - Last 24 hrs: Laboratory Results - last 24 hr 03/30/21 03/30/21 03/31/21 Range/Units 12:05 16:47 05:26 WBC (4.0-10.0) x10^3/uL RBC (4.5-6.0) x10^6/uL Hgb (14.0-18.0) g/dL Hct (40.0-52.0) % MCV (78.0-93.0) fL MCH (26.0-32.0) pg MCHC (32.0-36.0) g/dL RDW Coeff of Apurva (10.0-15.0) % Plt Count (130-400) x10^3/uL Immature Gran % (Auto) (0.00-0.43) % Neut % (Auto) (50.0-80.0) % Lymph % (Auto) (25.0-50.0) % Humphreys % (Auto) (2.0-11.0) % Eos % (Auto) (0.0-4.0) % Baso % (Auto) (0.2-1.2) % Neut # (Auto) (1.8-7.7) x10^3/uL Lymph # (Auto) (1.0-4.8) x10^3/uL Humphreys # (Auto) (0.0-0.8) x10^3/uL Eos # (Auto) (0.0-0.5) x10^3/uL Baso # (Auto) (0.0-0.2) x10^3/uL Immature Gran # (Auto) (0.00-0.07) x10^3/uL Sodium (136-145) mmol/L Potassium (3.5-5.1) mmol/L Chloride (98-107) mmol/L Carbon Dioxide (21-32) mmol/L Anion Gap (5-15) mmol/L BUN (7-18) mg/dL Creatinine (0.70-1.30) mg/dL Est Cr Clr Drug Dosing mL/min Estimated GFR (MDRD) Glucose (70-99) mg/dL POC Glucose 257 H 354 H 199 H (70-99) mg/dL Calcium (8.5-10.1) mg/dL Corrected Calcium (8.5-10.1) mg/dL Total Bilirubin (0.2-1.0) mg/dL AST (15-37) U/L ALT (16-63) U/L Alkaline Phosphatase (46-116) U/L Total Protein (6.4-8.2) g/dL Albumin (3.4-5.0) g/dL Globulin Albumin/Globulin Ratio 03/31/21 03/31/21 Range/Units 06:45 06:45 WBC 8.5 (4.0-10.0) x10^3/uL RBC 4.65 (4.5-6.0) x10^6/uL Hgb 11.3 L (14.0-18.0) g/dL Hct 36.5 L (40.0-52.0) % MCV 78.5 (78.0-93.0) fL MCH 24.3 L (26.0-32.0) pg MCHC 31.0 L (32.0-36.0) g/dL RDW Coeff of Apurva 16.6 H (10.0-15.0) % Plt Count 368 (130-400) x10^3/uL Immature Gran % (Auto) 2.50 H (0.00-0.43) % Neut % (Auto) 76.3 (50.0-80.0) % Lymph % (Auto) 9.8 L (25.0-50.0) % Humphreys % (Auto) 10.7 (2.0-11.0) % Eos % (Auto) 0.6 (0.0-4.0) % Baso % (Auto) 0.1 L (0.2-1.2) % Neut # (Auto) 6.5 (1.8-7.7) x10^3/uL Lymph # (Auto) 0.8 L (1.0-4.8) x10^3/uL Humphreys # (Auto) 0.9 H (0.0-0.8) x10^3/uL Eos # (Auto) 0.1 (0.0-0.5) x10^3/uL Baso # (Auto) 0.0 (0.0-0.2) x10^3/uL Immature Gran # (Auto) 0.21 H (0.00-0.07) x10^3/uL Sodium 138 (136-145) mmol/L Potassium 4.2 (3.5-5.1) mmol/L Chloride 101 (98-107) mmol/L Carbon Dioxide 28 (21-32) mmol/L Anion Gap 13.2 (5-15) mmol/L BUN 20 H (7-18) mg/dL Creatinine 1.0 (0.70-1.30) mg/dL Est Cr Clr Drug Dosing 77.60 mL/min Estimated GFR (MDRD) > 60 Glucose 224 H (70-99) mg/dL POC Glucose (70-99) mg/dL Calcium 8.8 (8.5-10.1) mg/dL Corrected Calcium 10.0 (8.5-10.1) mg/dL Total Bilirubin 0.4 (0.2-1.0) mg/dL AST 10 L (15-37) U/L ALT 19 (16-63) U/L Alkaline Phosphatase 87 (46-116) U/L Total Protein 6.2 L (6.4-8.2) g/dL Albumin 2.5 L (3.4-5.0) g/dL Globulin 3.7 Albumin/Globulin Ratio 0.68 Med Orders - Current: Current Medications Albuterol (Albuterol Hfa 18 Gm Inhaler) 0 gm INH Q4H PRN PRN Reason: Shortness of Breath Last Admin: 03/30/21 18:19 Dose: 2 puff Documented by: Alogliptin Benzoate (Alogliptin 12.5 Mg Tab) 25 mg PO DAILY [facility] Last Admin: 03/30/21 07:46 Dose: 25 mg Documented by: Aspirin (Aspirin 325 Mg Tab.Ec) 325 mg PO DAILY [facility] Last Admin: 03/30/21 13:29 Dose: 325 mg Documented by: Dexamethasone 2 mg/ (Dexamethasone 4 mg) 6 mg PO DAILY [facility] Stop: 04/01/21 08:01 Last Admin: 03/30/21 07:50 Dose: 6 mg Documented by: Dextrose/Water (50% Dextrose In Water 50 Ml Syringe) 50 ml IVPUSH ASDIRECTED PRN PRN Reason: Hypoglycemia Docusate Sodium (Docusate Sodium 100 Mg Cap) 100 mg PO Q12H PRN PRN Reason: Constipation Enoxaparin Sodium (Enoxaparin 40 Mg/0.4 Ml Syringe) 40 mg SUBCUT Q24H [facility] Last Admin: 03/30/21 19:56 Dose: 40 mg Documented by: Glucagon (Glucagon,Human Recombinant 1 Mg Vial) 1 mg IM ASDIRECTED PRN PRN Reason: Hypoglycemia Hydrochlorothiazide (Hydrochlorothiazide 25 Mg Tab) 25 mg PO DAILY [facility] Last Admin: 03/30/21 07:50 Dose: 25 mg Documented by: Insulin Glargine (Insulin Glarg,Human.Rec.Analog 100 Unit/Ml) 10 unit SUBCUT DAILY [facility] Last Admin: 03/30/21 13:27 Dose: 10 unit Documented by: Insulin Human Lispro (Insulin Lispro 100 Units/Ml 3 Ml Vial) 0 unit SUBCUT TIDMEALS [facility]; Protocol Last Admin: 03/30/21 18:16 Dose: 15 units Documented by: Lisinopril (Lisinopril 5 Mg Tab) 5 mg PO DAILY [facility] Last Admin: 03/30/21 07:49 Dose: 5 mg Documented by: Lorazepam (Lorazepam 1 Mg Tab) 1 mg PO Q8H PRN PRN Reason: Anxiety Last Admin: 03/30/21 21:51 Dose: 1 mg Documented by: Metformin HCl (Metformin 500 Mg Tab) 1,000 mg PO BIDMEALS [facility] Last Admin: 03/30/21 18:15 Dose: 1,000 mg Documented by: Semaglutide [Ozempic (] 1 Mg/0.75 Ml Pen) 0.5 mg SQ Q7D [facility] Last Admin: 03/29/21 12:02 Dose: Not Given Documented by: Polyethylene Glycol (Polyethylene Glycol 3350 Powder 17 Gm Packet) 17 gm PO DAILY [facility] Last Admin: 03/30/21 07:54 Dose: Not Given Documented by: Discontinued Medications Albuterol/Ipratropium (Albuterol/Ipratropium 3.0-0.5 Mg/3 Ml Neb Soln) 3 ml NEB Q4HWA [facility] Last Admin: 03/24/21 07:25 Dose: 3 ml Documented by: Azithromycin (Azithromycin 250 Mg Tab) 500 mg PO DAILY [facility] Stop: 03/28/21 08:01 Last Admin: 03/28/21 07:54 Dose: 500 mg Documented by: Ceftriaxone Sodium (Ceftriaxone 2 Gm Vial) 2 gm IVPUSH DAILY [facility] Last Admin: 03/29/21 08:14 Dose: 2 gm Documented by: Dexamethasone (Dexamethasone 2 Mg Tab) Confirm Administered Dose 2 mg .ROUTE .STK-MED ONE Stop: 03/23/21 15:08 Last Admin: 03/23/21 16:14 Dose: Not Given Documented by: Dexamethasone (Dexamethasone 2 Mg Tab) Confirm Administered Dose 2 mg .ROUTE .STK-MED ONE Stop: 03/27/21 07:02 Last Admin: 03/27/21 07:11 Dose: Not Given Documented by: Dextrose/Water (50% Dextrose In Water 50 Ml Syringe) 50 ml IVPUSH ASDIRECTED PRN PRN Reason: Hypoglycemia Dextrose/Water (50% Dextrose In Water 50 Ml Syringe) 50 ml IVPUSH ASDIRECTED PRN PRN Reason: Hypoglycemia Enoxaparin Sodium (Enoxaparin 40 Mg/0.4 Ml Syringe) 40 mg SUBCUT DAILY@1999 [facility] Last Admin: 03/27/21 21:56 Dose: 40 mg Documented by: Glipizide (Glipizide 10 Mg Tab) 10 mg PO DAILY [facility] Last Admin: 03/24/21 08:59 Dose: 10 mg Documented by: Glucagon (Glucagon,Human Recombinant 1 Mg Vial) 1 mg IM ASDIRECTED PRN PRN Reason: Hypoglycemia Glucagon (Glucagon,Human Recombinant 1 Mg Vial) 1 mg IM ASDIRECTED PRN PRN Reason: Hypoglycemia Remdesivir 100 mg/ Sodium (Chloride) 100 mls @ 100 mls/hr IV Q24H [facility] Stop: 03/27/21 14:59 Last Admin: 03/24/21 14:29 Dose: 100 mls/hr Documented by: Remdesivir 200 mg/ Sodium (Chloride) 250 mls @ 250 mls/hr IV ONETIME ONE Stop: 03/23/21 14:59 Last Admin: 03/23/21 15:46 Dose: 250 mls/hr Documented by: Remdesivir 100 mg/ Sodium (Chloride) 100 mls @ 100 mls/hr IV Q24H [facility] Stop: 03/27/21 15:44 Last Admin: 03/27/21 14:02 Dose: 100 mls/hr Documented by: Insulin Human Regular 100 unit (/ Sodium Chloride) 100 mls @ 10 mls/hr IV TITRATE [facility]; Protocol Last Admin: 03/24/21 16:30 Dose: 10 mls/hr, 10 mls/hr Documented by: Insulin Human Regular (Insulin Regular, Human 100 Units/Ml 3 Ml Vial) 0 unit SUBCUT TIDMEALS [facility]; Protocol Last Admin: 03/24/21 14:28 Dose: Not Given Documented by: Insulin Human Regular (Insulin Regular, Human 100 Units/Ml 3 Ml Vial) 20 unit SUBCUT ONETIME ONE Stop: 03/24/21 09:01 Last Admin: 03/24/21 11:42 Dose: 20 units Documented by: Insulin Human Regular (Insulin Regular, Human 100 Units/Ml 3 Ml Vial) 20 unit SUBCUT ONETIME ONE Stop: 03/26/21 03:49 Last Admin: 03/25/21 20:42 Dose: 20 units Documented by: Pioglitazone HCl (Pioglitazone 15 Mg Tab) 30 mg PO DAILY [facility] Last Admin: 03/24/21 08:58 Dose: 30 mg Documented by: - Exam General: Reports: Alert, Oriented HEENT: Reports: Pupils Equal, Pupils Reactive Neck: Reports: Supple Lungs: Reports: Clear to Auscultation Cardiovascular: Reports: Regular Rate, Regular Rhythm GI/Abdominal Exam: Normal Bowel Sounds Skin: Reports: Warm, Dry Psy/Mental Status: Reports: Alert, Normal Affect, Normal Mood
[2021-03-31] MEDS: Polyethylene Glycol 3350 Powder 17 GM Packet PO SCH (08:10)
[2021-03-31] MEDS: Insulin Glarg,Human.Rec.Analog 100 Unit/ML SUBCUT SCH (08:26)
== END 2021-03-31 09:42 | disposition home or self-care (01) | DRG 137 ==
LOC: VM.MS 12:16 → UNDODISIN 03-31 09:42
PROVIDERS: ADMIT Nurse Practitioner Family; ATTEND Nurse Practitioner Family
PROC: 8E0ZXY6 Isolation (ICD-10-PCS; principal; 2021-03-23)
PROC: 3E0DX3Z Introduction of Anti-inflammatory into Mouth and Pharynx, External Approach (ICD-10-PCS; principal; 2021-03-23)
PROC: XW033E5 Introduction of Remdesivir Anti-infective into Peripheral Vein, Percutaneous Approach, New Technology Group 5 (ICD-10-PCS; principal; 2021-03-23)
DX: U07.1 COVID-19 (principal); J96.01 Acute respiratory failure with hypoxia; F41.9 Anxiety disorder, unspecified; J44.9 Chronic obstructive pulmonary disease, unspecified; E11.59 Type 2 diabetes mellitus with other circulatory complications; I15.2 Hypertension secondary to endocrine disorders; E78.5 Hyperlipidemia, unspecified; N52.9 Male erectile dysfunction, unspecified; E66.9 Obesity, unspecified; D12.6 Benign neoplasm of colon, unspecified; N40.0 Benign prostatic hyperplasia without lower urinary tract symptoms; Z87.891 Personal history of nicotine dependence; Z79.84 Long term (current) use of oral hypoglycemic drugs; Z79.4 Long term (current) use of insulin; Z79.899 Other long term (current) drug therapy; Z79.82 Long term (current) use of aspirin; Z91.013 Allergy to seafood; Z88.8 Allergy status to other drugs, medicaments and biological substances; Z88.0 Allergy status to penicillin
CPT/HCPCS: 36415; 36600; 71046; 80053; 81001; 82550; 82728; 82803; 82947; 83605; 83615; 83735; 84100; 85025; 85379; 85610; 85730; 86140; 87040; 87070; 87205; 87899; 93005; 94640; 94760; A9270-GY; J0696; J1650; J1815-GY; J7050; J7620-GY; J8540